=== PATIENT | male | born 1960 | race Caucasian/White ===

== ENCOUNTER → 2017-02-05 | Outpatient (CLI) | payer OTHER | LOC: LAB 14:13 | DX: Z00.00 Encounter for general adult medical examination without abnormal findings (principal); Z12.5 Encounter for screening for malignant neoplasm of prostate ==

== ENCOUNTER → 2017-02-26 | Outpatient (CLI) | payer OTHER | LOC: RAD 16:44 | DX: M25.551 Pain in right hip (principal); M16.11 Unilateral primary osteoarthritis, right hip ==

== ENCOUNTER → 2017-03-08 | Outpatient (CLI) | payer OTHER | LOC: RAD 15:41 | DX: M25.551 Pain in right hip (principal); M70.62 Trochanteric bursitis, left hip; M70.61 Trochanteric bursitis, right hip ==

== ENCOUNTER → 2017-07-08 | Outpatient (CLI) | payer OTHER ==
[~2017-07-08] VITALS: Ht 170.2 cm; Wt 77.3 kg
[~2017-07-08] MED LIST: ASPIRIN 81M81 MG/TA2 PO; LISINOPRIL40 MG PO; MECLIZINE PO; NORCO 325 MG-7.1 TA1 PO; TOPROL XL 50MG50 MG PO; TRAMADOL 50 MG TAB PO
[2017-07-08 09:41] VITALS: BP 128/76
== END ==
LOC: LAB 09:15 → AMSURD 09:15
DX: Z01.818 Encounter for other preprocedural examination (principal); M16.0 Bilateral primary osteoarthritis of hip

== ENCOUNTER → 2018-07-22 | Outpatient (CLI) | payer OTHER ==
[2017-07-08 09:41] VITALS: BP 128/76
== END ==
LOC: RAD 13:51
DX: R29.898 Other symptoms and signs involving the musculoskeletal system (principal)

== ENCOUNTER → 2018-08-15 | Outpatient (CLI) | payer OTHER ==
[2017-07-08 09:41] VITALS: BP 128/76
== END ==
LOC: LAB 13:40
DX: F17.211 Nicotine dependence, cigarettes, in remission (principal)

== ENCOUNTER → 2020-04-08 | Outpatient (CLI) | payer OTHER ==
[2017-07-08 09:41] VITALS: BP 128/76
== END ==
LOC: LAB 12:51
DX: Z20.828 Contact with and (suspected) exposure to other viral communicable diseases (principal)

== ENCOUNTER → 2020-04-10 | Outpatient (CLI) | payer OTHER ==
[2017-07-08 09:41] VITALS: BP 128/76
== END ==
LOC: LAB 12:42
DX: U07.1 COVID-19 (principal)

== ENCOUNTER → 2021-02-27 | Outpatient (CLI) | payer OTHER ==
[2017-07-08 09:41] VITALS: BP 128/76
[2021-02-27 14:52] LABS: BASO # 0.08 (0.02-0.10); EOS # 0.06 (0.04-0.40); EOS % 0.6 % (0.0-4.0); HEMATOCRIT 46.1 % (42.0-52.0); HEMOGLOBIN 15.5 g/dL (13.5-18.0); LYMPH# 4.11 (1.50-4.00); MEAN CELL VOLUME 92 fl (78-100); MEAN CORPUSCULAR HEMOGLOBIN 31 pg (27-31); MEAN CORPUSCULAR HGB CONC 34 g/dL (33-37); MEAN PLATELET VOLUME 9.9 fl (7.4-10.4); MONO # 0.79 (0.20-0.80); NEU # 5.61 (1.40-6.50); PLATELET COUNT 370 K/mm3 (130-400); RED BLOOD COUNT 5.04 M/mm3 (4.20-5.60); RED CELL DISTRIBUTION WIDTH 12.3 % (11.5-14.5); WHITE BLOOD COUNT 10.7 K/mm3 (4.8-10.8)
[2021-02-27 15:01] LABS: POTASSIUM 3.7 mmol/L (3.5-5.1)
[2021-02-27 15:02] LABS: ALBUMIN 4.3 g/dL (3.5-5.0)
[2021-02-27 15:03] LABS: CALCIUM 9.7 mg/dL (8.3-10.5)
[2021-02-27 15:04] LABS: TOTAL PROTEIN 7.2 g/dL (6.4-8.3)
[2021-02-27 15:06] LABS: TOTAL BILIRUBIN 0.3 mg/dL (0.2-1.2)
[2021-02-27 15:07] LABS: URINE APPEARANCE HAZY; URINE BILIRUBIN NEGATIVE (NEGATIVE); URINE BLOOD NEGATIVE (NEGATIVE); URINE COLOR YELLOW; URINE GLUCOSE NEGATIVE (NEGATIVE); URINE KETONE NEGATIVE (NEGATIVE); URINE LEUKOCYTE ESTERASE NEGATIVE (NEGATIVE); URINE MUCUS PRESENT (NOT PRESENT); URINE NITRATE NEGATIVE (NEGATIVE); URINE PROTEIN(semi-quant) TRACE mg/dL (NEGATIVE); URINE UROBILINOGEN NORMAL (NORMAL)
[2021-02-27 15:11] LABS: MAGNESIUM 1.87 mg/dL (1.60-2.60)
[2021-02-27 15:57] LABS: ERYTHROCYTE SEDIMENTATION RATE 5 mm/hr (0-20)
== END ==
LOC: LAB 14:28
PROVIDERS: Internal Medicine
DX: Z00.00 Encounter for general adult medical examination without abnormal findings (principal); Z12.5 Encounter for screening for malignant neoplasm of prostate; Z12.11 Encounter for screening for malignant neoplasm of colon; K90.9 Intestinal malabsorption, unspecified; E55.9 Vitamin D deficiency, unspecified

== ENCOUNTER → 2021-05-06 | Outpatient (CLI) | payer OTHER | LOC: VAS 12:50 → RAD 13:00 | DX: R09.89 Other specified symptoms and signs involving the circulatory and respiratory systems (principal); I77.9 Disorder of arteries and arterioles, unspecified ==

== ENCOUNTER → 2021-07-16 | Outpatient (CLI) | payer OTHER | LOC: LAB 10:12 → EDSTATUS 10:12 | DX: Z01.812 Encounter for preprocedural laboratory examination (principal); Z20.822 Contact with and (suspected) exposure to COVID-19 ==

== ENCOUNTER → 2021-12-19 | Outpatient (CLI) | payer OTHER ==
[2021-12-19 09:37] LABS: POTASSIUM 4.3 mmol/L (3.5-5.1)
[2021-12-19 09:38] LABS: ALBUMIN 4.2 g/dL (3.4-4.8)
[2021-12-19 09:39] LABS: CALCIUM 9.3 mg/dL (8.3-10.5)
[2021-12-19 09:40] LABS: BASO # 0.09 K/mm3 (0.02-0.10); EOS # 0.06 K/mm3 (0.04-0.40); EOS % 0.4 % (0.0-4.0); HEMOGLOBIN 13.9 g/dL (13.5-18.0); LYMPH# 4.43 K/mm3 (1.50-4.00); MEAN CELL VOLUME 95 fl (78-100); MEAN CORPUSCULAR HEMOGLOBIN 31 pg (27-31); MEAN CORPUSCULAR HGB CONC 33 g/dL (33-37); MEAN PLATELET VOLUME 10.6 fl (7.4-10.4); MONO # 0.86 K/mm3 (0.20-0.80); NEU # 9.29 K/mm3 (1.40-6.50); PLATELET COUNT 307 K/mm3 (130-400); RED BLOOD COUNT 4.44 M/mm3 (4.20-5.60); TOTAL PROTEIN 7.2 g/dL (6.2-8.1); WHITE BLOOD COUNT 14.7 K/mm3 (4.8-10.8)
[2021-12-19 09:42] LABS: TOTAL BILIRUBIN 0.3 mg/dL (0.2-1.2)
[2021-12-19 09:47] LABS: MAGNESIUM 2.09 mg/dL (1.60-2.60)
== END ==
LOC: LAB 08:53
PROVIDERS: Internal Medicine
DX: E55.9 Vitamin D deficiency, unspecified (principal); I10 Essential (primary) hypertension; I25.10 Atherosclerotic heart disease of native coronary artery without angina pectoris; J44.9 Chronic obstructive pulmonary disease, unspecified; K90.9 Intestinal malabsorption, unspecified; H81.13 Benign paroxysmal vertigo, bilateral

== ENCOUNTER → 2021-12-22 | Outpatient (CLI) | payer OTHER ==
[2021-12-22 10:25] LABS: BASO # 0.09 K/mm3 (0.02-0.10); EOS # 0.07 K/mm3 (0.04-0.40); EOS % 0.6 % (0.0-4.0); HEMATOCRIT 40.8 % (42.0-52.0); HEMOGLOBIN 13.6 g/dL (13.5-18.0); LYMPH# 3.95 K/mm3 (1.50-4.00); MEAN CELL VOLUME 94 fl (78-100); MEAN CORPUSCULAR HEMOGLOBIN 32 pg (27-31); MEAN CORPUSCULAR HGB CONC 33 g/dL (33-37); MEAN PLATELET VOLUME 10.4 fl (7.4-10.4); MONO # 0.68 K/mm3 (0.20-0.80); NEU # 6.58 K/mm3 (1.40-6.50); PLATELET COUNT 331 K/mm3 (130-400); RED BLOOD COUNT 4.32 M/mm3 (4.20-5.60); WHITE BLOOD COUNT 11.4 K/mm3 (4.8-10.8)
== END ==
LOC: LAB 08:48
PROVIDERS: Internal Medicine
DX: D72.829 Elevated white blood cell count, unspecified (principal)

== ENCOUNTER 2022-08-27 08:30 | Outpatient (RCR) | payer OTHER | END 2022-09-23 | disposition home or self-care (01) | LOC: CARDREHAB | DX: Z48.812 Encounter for surgical aftercare following surgery on the circulatory system (principal); Z95.5 Presence of coronary angioplasty implant and graft ==

== ENCOUNTER → 2024-01-11 | Outpatient (CLI) | payer OTHER | LOC: RAD 15:26 | DX: M11.262 Other chondrocalcinosis, left knee (principal); Z98.890 Other specified postprocedural states ==

== ENCOUNTER → 2024-02-15 | Outpatient (CLI) | payer OTHER | LOC: RAD 10:38 | DX: S83.282A Other tear of lateral meniscus, current injury, left knee, initial encounter (principal); Z98.890 Other specified postprocedural states ==

== ENCOUNTER → 2024-03-28 | Outpatient (CLI) | payer OTHER ==
[2024-05-16 12:42] LABS: ALBUMIN 4.1 g/dL (3.4-4.8); CALCIUM 9.2 mg/dL (8.3-10.5); MAGNESIUM 2.1 mg/dL (1.60-2.60); TOTAL BILIRUBIN 0.3 mg/dL (0.2-1.2); TOTAL PROTEIN 6.6 g/dL (6.2-8.1)
[2024-05-16 12:47] LABS: BASO # 0.07 K/mm3 (0.02-0.10); EOS # 0.07 K/mm3 (0.04-0.40); EOS % 0.7 % (0.0-4.0); HEMATOCRIT 41.2 % (42.0-52.0); HEMOGLOBIN 13.4 g/dL (13.5-18.0); LYMPH# 3.38 K/mm3 (1.50-4.00); MEAN CELL VOLUME 95 fl (78-100); MEAN CORPUSCULAR HEMOGLOBIN 31 pg (27-31); MEAN CORPUSCULAR HGB CONC 33 g/dL (33-37); MEAN PLATELET VOLUME 9.4 fl (7.4-10.4); NEU # 5.64 K/mm3 (1.40-6.50); PLATELET COUNT 398 K/mm3 (130-400); RED BLOOD COUNT 4.33 M/mm3 (4.20-5.60); RED CELL DISTRIBUTION WIDTH 12.3 % (11.5-14.5); WHITE BLOOD COUNT 9.9 K/mm3 (4.8-10.8)
[2024-05-16 12:54] LABS: PH-URINE 5.5 (5.0 - 8.0); PROTHROMBIN TIME 9.9 SECONDS (9.0-12.0); URINE APPEARANCE CLEAR (CLEAR); URINE BILIRUBIN NEGATIVE (NEGATIVE); URINE BLOOD NEGATIVE (NEGATIVE); URINE COLOR YELLOW (YELLOW); URINE GLUCOSE NEGATIVE (NEGATIVE); URINE KETONE NEGATIVE (NEGATIVE); URINE LEUKOCYTE ESTERASE NEGATIVE (NEGATIVE); URINE NITRATE NEGATIVE (NEGATIVE); URINE PROTEIN(semi-quant) NEGATIVE (NEGATIVE)
[2024-05-16 12:55] LABS: URINE MUCUS PRESENT (NOT PRESENT); URINE WBC 0-1 /hpf (0-3)
== END ==
LOC: LAB 09:30
PROVIDERS: Internal Medicine
DX: Z01.818 Encounter for other preprocedural examination (principal); I25.10 Atherosclerotic heart disease of native coronary artery without angina pectoris; K90.9 Intestinal malabsorption, unspecified

== ENCOUNTER → 2024-03-29 | Outpatient (CLI) | payer OTHER | LOC: AMSURD 13:19 | DX: Z01.818 Encounter for other preprocedural examination (principal); I65.29 Occlusion and stenosis of unspecified carotid artery ==